=== PATIENT | male | born 1990 | race African-American/Black ===

== ENCOUNTER 2017-12-12 09:28 | Emergency (ER) | payer OTHER ==
[~2017-12-12] VITALS: Ht 182.9 cm; Wt 104.3 kg
[~2017-12-12 09:28] MED LIST: ERYTHROMYCIN E3.5 G3 OPHTHALMIC; IBUPROFEN 800800 M1 PO
[2017-12-12] MEDS ORDERED: ACCUNEB SO1.25 MG/1 INH (09:38)
[2017-12-12 09:52] LABS: URINE BILIRUBIN NEGATIVE (Negative); URINE BLOOD TRACE (Negative); URINE CLARITY CLEAR; URINE COLOR YELLOW; URINE GLUCOSE-RANDOM* NEGATIVE (Negative); URINE KETONES TRACE (Negative); URINE LEUKOCYTES NEGATIVE (Negative); URINE NITRITE NEGATIVE (Negative); URINE PROTEIN (DIPSTICK) 1+ (Negative); URINE SPECIFIC GRAVITY 1.025 (1.005-1.035); URINE UROBILINOGEN 0.2 E.U./dl (0.2-1.0)
[2017-12-12 10:12] LABS: AMORPHOUS URATES Few /LPF (None Seen); BACTERIA 1-9 Few /HPF (None Seen); CASTS None Seen /LPF (None Seen); SQUAMOUS 0-3 Few /LPF (0-3); URINE RBC None Seen /HPF (0-2); URINE WBC None Seen /HPF (0-5)
[2017-12-12 10:25] LABS: BASOPHILS 0.1 % (0.0-2.0); HEMATOCRIT 43.5 % (42.0-52.0); HEMOGLOBIN 14.4 gm/dL (14.0-18.0); LYMPHOCYTES 15.4 % (24.0-44.0); MCH 27.4 pg (26.0-34.0); MCHC 33.1 g/dL (28.0-37.0); MCV 82.9 fL (80.0-100.0); MONOCYTES 10.6 % (1.0-8.0); PLATELET COUNT 126 thou/uL (150-400); POLYS 73.9 % (36.0-66.0); RBC 5.25 mil/uL (4.50-6.00); RDW 12.8 % (10.5-14.5); WBC 5.4 thou/uL (4.0-11.0)
[2017-12-12 10:28] LABS: CALCIUM 8.4 mg/dL (8.5-10.1); CREATININE 1.4 mg/dL (0.7-1.3)
[2017-12-12 10:34] LABS: ALBUMIN 3.5 g/dL (3.4-5.0); TOTAL BILIRUBIN 0.3 mg/dL (<0.1-1.0); TOTAL PROTEIN 7.8 g/dL (6.4-8.2)
[2017-12-12] MEDS ORDERED: DOXYCYCLINE 10100 MG PO (11:16)
[2017-12-12] MEDS ORDERED: MOBIC7.5 MG PO (11:16)
[2017-12-12] MEDS ORDERED: FLEXERIL PO (11:16)
[2017-12-12 11:43] VITALS: BP 106/62
== END 2017-12-12 11:51 | disposition home or self-care (01) ==
LOC: ER 09:28
PROVIDERS: Physician Assistant
DX: R50.9 Fever, unspecified (principal); J18.9 Pneumonia, unspecified organism; M79.1 Myalgia; J45.909 Unspecified asthma, uncomplicated